=== PATIENT | female | born 1960 | race Caucasian/White ===

== ENCOUNTER 2016-07-27 12:58 | Emergency (ER) | payer OTHER ==
[~2016-07-27 12:58] MED LIST: AMPH20CA5 PO; ATEN50TA PO; DIPH50C PO; ESTR1TAB24 PO; FLUP25VI2 IJ; KETO5DRO60 OP; LIP40 PO; LORA-610 PO; OMEP-113 PO; [UNRECOGNIZED DRUG - CODE] PO; [UNRECOGNIZED DRUG - CODE] PO
== END 2016-07-27 13:23 | disposition left against medical advice (07) ==
LOC: SED 12:58
DX: Z53.20 Procedure and treatment not carried out because of patient's decision for unspecified reasons (principal)